=== PATIENT | female | born 1940 | race Caucasian/White ===

== ENCOUNTER → 2017-02-05 | Outpatient (CLI) | payer MEDICARE ==
[~2017-02-05] MED LIST: ALBUTEROL 0.5ML INH; ALBUTEROL20 ml INH; AZITHROMYCIN250 MG PO; COZAAR100 MG PO; DILTIAZEM 24HR180 M2 PO; ELIQUIS5 MG PO; FLEXERIL10 MG PO; FUROSEMIDE40 MG PO; INCRUSE ELLI62.5 MCG INH; LEVAQUIN750 M1 PO; LIORESAL10 MG PO; LIPITOR PO; LISINOPRIL20 MG PO; LOPRESSOR PO; LOSARTAN POTASS50 MG PO; METOPROLOL SUCC25 MG PO; METOPROLOL TAR25 MG PO; NABUMETONE PO; NATURAL VITA200 UNIT PO; PANTOPRAZOLE SO40 MG PO; PRINIVIL20 M1 PO; PROTONIX PO; SYMBICORT INH; TRAMADOL HCL50 M1 PO; TRAMADOL HCL50 M2 PO; VIMOVO 500-201 EACH PO; ZOCOR20 MG PO; ZOLOFT PO; ZOLOFT100 MG PO; [UNRECOGNIZED DRUG - OTHER] PO
--- NOTE | ~2017-02-05 | EKG ---
PATIENT: ANAHY CHEN UNIT #: [id number] Ventricular Rate: 116 BPM Atrial Rate: 133 BPM QRS Duration: 88 ms Q-T Interval: 338 ms QTC Calculation(Bezet): 469 ms Calculated R [place]: -28 degrees Calculated T [place]: 51 degrees Diagnosis Line: Atrial fibrillation with rapid ventricular Diagnosis Line: response Diagnosis Line: Nonspecific ST abnormality , probably digitalis Diagnosis Line: effect Diagnosis Line: Abnormal ECG Diagnosis Line: No previous ECGs available Diagnosis Line: Confirmed by EFRAÍN BERRIOS MD ([id number]) on Diagnosis Line: 02/05/2017 4:40:07 PM INTERPRETING MD: YASH STRICKLAND
== END | disposition home or self-care (01) ==
LOC: CEKG 11:16
DX: R06.00 Dyspnea, unspecified (principal)
CPT/HCPCS: 93005

== ENCOUNTER → 2017-06-18 | Day surgery (SDC) | payer MEDICARE ==
--- NOTE | ~2017-06-18 | OR ---
Unit #: [id number] #: [id number] Patient: ANAHY CHEN [id number] [address] [address] [id number] MR#: [id number] NAME: ANAHY CHEN. ROOM: Date of Procedure: 06/18/2017 Admission Date: 06/18/2017 Surgeon: Kranthi Rajan M.D. : 1940 Attending Physician: Kranthi Rajan M.D. Primary Care Physician: Generic Doctor Not In System OPERATIVE REPORT PREOPERATIVE DIAGNOSES Back pain, radiculopathy, spondylolisthesis, spinal stenosis, herniated nucleus pulposus. POSTOPERATIVE DIAGNOSES Back pain, radiculopathy, spondylolisthesis, spinal stenosis, herniated nucleus pulposus. PROCEDURE PERFORMED Lumbar epidural steroid injection with fluoroscopic guidance for needle localization. INDICATIONS FOR PROCEDURE The patient is a 77-year-old female with return of back and bilateral lower extremity pain due to previously mentioned multilevel multifactorial nonsurgical pathology. She was last treated in 10/2015 with epidural steroids. This prior to that, she had been treated 2 years earlier. She did well for about a year and a half. She had a return of the pain over the last 4 to 5 months. Based on history, pathology, symptomatology, and options, we are going to proceed with a repeat injection today. DESCRIPTION OF PROCEDURE The patient was placed in a seated position. Standard monitors were applied. Sterile prep and drape of the lumbar area were performed. The skin at the L3-L4 level was localized with 1% lidocaine. An 18-gauge Hustead needle was then advanced via loss of resistance technique and fluoroscopic guidance in toward the epidural space. After confirming proper positioning with fluoroscopy and radiographic contrast, 80 mg of Depo-Medrol and 6 mL of 0.125% bupivacaine were deposited. The patient tolerated the procedure otherwise well and was discharged to the recovery room in stable condition. Dictated by... Lili Ramírez/hermilo TD: 06/18/2017 11:42 JOB #: [id number] CC: Jerzy Gann M.D. Unit #: [id number] #: [id number] Patient: ANAHY CHEN OPERATIVE REPORT Page 1 of 1 X Kranthi Rajan MD X PROCEDURE OPERATIVE NOTE
== END | disposition home or self-care (01) ==
LOC: CCSC 07:40
DX: M51.16 Intervertebral disc disorders with radiculopathy, lumbar region (principal); M43.16 Spondylolisthesis, lumbar region; M48.06 Spinal stenosis, lumbar region; I10 Essential (primary) hypertension; M19.90 Unspecified osteoarthritis, unspecified site; F32.9 Major depressive disorder, single episode, unspecified; Z79.01 Long term (current) use of anticoagulants; Z79.51 Long term (current) use of inhaled steroids; Z79.899 Other long term (current) drug therapy
CPT/HCPCS: J1040; J2250

== ENCOUNTER → 2017-06-25 | Day surgery (SDC) | payer MEDICARE ==
--- NOTE | ~2017-06-25 | OR ---
Unit #: [id number] #: [id number] Patient: ANAHY CHEN [id number] [address] [address] [id number] O MR#: [id number] NAME: ANAHY CHEN ROOM: Date of Procedure: 06/25/2017 Admission Date: 06/25/2017 Surgeon: Kranthi Rajan M.D. : 1940 Attending Physician: Kranthi Rajan M.D. Primary Care Physician: Generic Doctor Not In System OPERATIVE REPORT PREOPERATIVE DIAGNOSES Back pain, radiculopathy, spondylolisthesis, spinal stenosis, herniated nucleus pulposus. POSTOPERATIVE DIAGNOSES Back pain, radiculopathy, spondylolisthesis, spinal stenosis, herniated nucleus pulposus. PROCEDURE PERFORMED Lumbar epidural steroid injection with fluoroscopic guidance for needle localization. INDICATIONS FOR PROCEDURE The patient is a 77-year-old female with worsening back and bilateral lower extremity pains due to multilevel multifactorial degenerative disk disease, stenosis, and disk extrusion most significant at L3-L4. She was last treated with epidural steroid injections over a year and a half ago and done well for much at that time. She had resurgence of the pain in the month or so before she presented. Initial injection done last week resulted in near resolution of the left leg pain, improvement of the back pain and right leg and hip pain, though the right leg and hip remained primary complaint at this point. DESCRIPTION OF PROCEDURE The patient was placed in a seated position. Standard monitors were applied. Sterile prep and drape of the lumbar area were performed. The skin then at the L3 level was localized with 1% lidocaine. An 18-gauge [email or web address] needle was then advanced via loss of resistance technique and fluoroscopic guidance in toward the epidural space. After confirming proper positioning with fluoroscopy and radiographic contrast, 80 mg of Depo-Medrol and 6 mL of 0.125% bupivacaine were deposited. The patient tolerated the procedure otherwise well and was discharged to recovery room in stable condition. Dictated by... Lili Ramírez/hermilo TD: 06/25/2017 17:46 JOB #: [id number] Unit #: [id number] #: [id number] Patient: ANAHY CHEN Jose G OPERATIVE REPORT Page 1 of 1 X Kranthi Rajan MD X PROCEDURE OPERATIVE NOTE
== END | disposition home or self-care (01) ==
LOC: CCSC 07:46
DX: M51.16 Intervertebral disc disorders with radiculopathy, lumbar region (principal); M43.16 Spondylolisthesis, lumbar region; M48.06 Spinal stenosis, lumbar region; I10 Essential (primary) hypertension; M19.90 Unspecified osteoarthritis, unspecified site; F32.9 Major depressive disorder, single episode, unspecified; Z79.01 Long term (current) use of anticoagulants; Z79.51 Long term (current) use of inhaled steroids; Z79.899 Other long term (current) drug therapy
CPT/HCPCS: J1040; J2250